=== PATIENT | male | born 1980 | race Caucasian/White ===

== ENCOUNTER 2016-11-23 12:28 | Day surgery (SDC) | payer BC ==
[2016-11-18 21:09] LABS: BASOPHILS 0.3 %; BASOPHILS ABSOLUTE 0.02 10/3/uL (0.0-0.16); EOSINOPHILS 1.8 %; EOSINOPHILS ABSOLUTE 0.11 10/3/uL (0.0-0.53); HEMATOCRIT 44.3 % (40.0-51.0); HEMOGLOBIN 15.4 g/dL (13.6-17.8); IMMATURE GRANULOCYTES 0.2 %; IMMATURE GRANULOCYTES ABSOLUTE 0.01 10/3/uL (0.0-0.11); LYMPHOCYTES 48.5 %; LYMPHOCYTES ABSOLUTE 2.95 10/3/uL (0.67-4.30); MEAN CORPUS HGB CONC 34.8 g/dL (32.0-36.0); MEAN CORPUSCULAR HEMOGLOB 31.6 pg (26.0-34.0); MEAN CORPUSCULAR VOLUME 90.8 fL (80-100); MEAN PLATELET VOLUME 10.3 fL (9.2-13.0); MONOCYTES 11.2 %; MONOCYTES ABSOLUTE 0.68 10/3/uL (0.21-1.20); NEUTROPHILS ABSOLUTE 2.31 10/3/uL (2.02-8.40); PLATELET COUNT 203 10/3/uL (150-400); RBC DISTRIBUTION WIDTH 13.1 % (12.0-16.0); RED CELL COUNT 4.88 10/6/uL (4.7-6.1); WHITE BLOOD CELLS 6.1 10/3/uL (4.5-10.5)
[2016-11-18 21:14] LABS: MANUAL DIFF NO %
[2016-11-18 21:21] LABS: A/G RATIO 1.6 (0.7-1.9); ALBUMIN 4.4 G/DL (3.5-5.0); ALKALINE PHOSPHATASE 80 U/L (45-117); BUN (BLOOD UREA NITROGEN) 18 MG/DL (6-23); CALCIUM, SERUM 9.3 MG/DL (8.5-10.4); CHLORIDE, SERUM 107 MMOL/L (96-112); CO2 (CARBON DIOXIDE) 30 MMOL/L (24-34); CREATININE 1.67 MG/DL (0.70-1.30); GFR AFRICAN AMERICAN 60 ML/MIN (>=60); GFR NON AFRICAN AMERICAN 52 ML/MIN (>=60); GLOBULIN 2.8 G/DL (2.5-4.1); GLUCOSE, SERUM 101 MG/DL (60-99); POTASSIUM, SERUM 4.9 MMOL/L (3.5-5.3); SGOT(AST) 23 U/L (5-40); SGPT(ALT) 56 U/L (5-65); SODIUM, SERUM 144 MMOL/L (135-148); TOTAL BILIRUBIN 0.4 MG/DL (0-1.2); TOTAL PROTEIN 7.2 G/DL (6.0-8.5)
--- NOTE | ~2016-11-23 | OP ---
Record Of Operation [facility] [address] [place]. [address] NAME: MARIA VICTORIA GOMEZ : 80 STATUS : REG [facility]#: [id number] AGE: 36 ADM/REG DATE : 11/23/16 MR#: [id number] REPORT SERV DATE: 11/23/16 DICTATED BY: ROBERT JOSE DATE: 11/23/16 REPORT STATUS : Draft TRANSCRIBED BY: MODCedric DATE: 11/23/16 DATE OF PROCEDURE: 11/23/2016 PREOPERATIVE DIAGNOSES: Large left hydrocele (1000 mL). POSTPROCEDURE DIAGNOSIS: Large left hydrocele (1000 mL). OPERATIVE PROCEDURE: Left hydrocelectomy. ANESTHESIA: Inhalation. SURGEON: Dr. Jose. RECORD PRESSMAN: Guerita Javed. ESTIMATED BLOOD LOSS: 20 mL. SPECIMENS: 1. Hydrocele sac. 2. Mineral concretion ("Gena") from within hydrocele sac. DRAINS: Two [id number] Hadley drains. COMPLICATIONS: None. IMMEDIATE POSTOP: Satisfactory. DESCRIPTION OF PROCEDURE: The patient was brought to the surgery suite, given inhalational anesthetic, placed in the supine position, given general inhalational anesthetic. Scrotum shaved, prepped, and draped in a sterile fashion. Left hemiscrotal incision was made, carried down through the scrotal wall using the Bovie cautery. The hydrocele sac with the testis within was then dissected using a combination of blunt and sharp dissection and delivered from the left hemiscrotum. Hydrocele sac was then opened along a long axis and drained of approximately a 1000 mL of clear hydrocele fluid. The testis was inspected and it appeared perfectly viable and normal without masses. There was a small mineral concretion ("Gena") which was submitted to Pathology. The excess hydrocele sac was then removed using Bovie cautery and the redundant sac was then "bottle necked" loosely around the posterior portion of the spermatic cord. The left hemiscrotum was then copiously irrigated and meticulously observed for bleeders which were controlled with electrocautery. This being a very large hydrocele, significant dissection was required to remove the hydrocele sac and testicle from the left hemiscrotum. Satisfactory hemostasis was obtained with electrocautery. At this point, a separate dependent stab incision was made and passed through the left hemiscrotal wall and 2 one quarter-inch Hadley drains were placed into the left hemiscrotum brought out through the aforementioned drain incision. The testis was then carefully placed back in the left hemiscrotum in a normal anatomic position and the wound was closed in layers. Sponge and instrument counts were correct. At this point, a sterile Record Of Operation [address] [place]. [address] NAME: MARIA VICTORIA GOMEZ : 80 STATUS : REG [facility] PAT#: [id number] AGE: 36 ADM/REG DATE : 11/23/16 MR#: [id number] REPORT SERV DATE: 11/23/16 DICTATED BY: ROBERT JOSE DATE: 11/23/16 REPORT STATUS : Draft TRANSCRIBED BY: BREN DATE: 11/23/16 dressing and scrotal support were placed on the patient. He was awake and sent to recovery in satisfactory condition. MS/BREN Robert Jose M.D. / [id number] CC: Roby Owusu M.D.
[~2016-11-23 12:28] MED LIST: T PO; [UNRECOGNIZED DRUG - OTHER] PO
[2016-11-23 13:14] LABS: BUN (BLOOD UREA NITROGEN) 14 MG/DL (6-23); CALCIUM, SERUM 8.7 MG/DL (8.5-10.4); CHLORIDE, SERUM 104 MMOL/L (96-112); CO2 (CARBON DIOXIDE) 30 MMOL/L (24-34); CREATININE 1.23 MG/DL (0.70-1.30); GFR AFRICAN AMERICAN 87 ML/MIN (>=60); GFR NON AFRICAN AMERICAN 75 ML/MIN (>=60); GLUCOSE, SERUM 92 MG/DL (60-99); POTASSIUM, SERUM 4.1 MMOL/L (3.5-5.3); SODIUM, SERUM 140 MMOL/L (135-148)
== END 2016-11-23 18:20 | disposition home or self-care (01) ==
LOC: SDC 12:28
PROVIDERS: Urology
PROC: 0VB70ZZ Excision of Left Tunica Vaginalis, Open Approach (ICD-10-PCS; principal; 2016-11-23 13:45)
DX: N43.3 Hydrocele, unspecified (principal); F17.290 Nicotine dependence, other tobacco product, uncomplicated; Z79.899 Other long term (current) drug therapy; Z87.81 Personal history of (healed) traumatic fracture; Z98.890 Other specified postprocedural states
CPT/HCPCS: 36415; 71020; 80048; 80053; 85025; 88302; A9270-GY; J0690; J1170; J2250; J2405; J3010